=== PATIENT | female | born 1950 | race Caucasian/White ===

== ENCOUNTER 2017-02-11 02:28 | Emergency (ER) | payer BC ==
[2017-02-11] MEDS ORDERED: NS 0.9% 1000 ML* 1,000 ML IV ONE (02:49)
[2017-02-11 03:23] LABS: Hematocrit 43 % (35-47); Hemoglobin 14.5 g/dl (12.0-16.0); Mean Corpuscular HGB Conc 34 g/dl (31-36); Mean Corpuscular Hemoglobin 31 pg (27-31); Mean Corpuscular Volume 91 fL (80-97); Mean Platelet Volume 9 um3 (7.4-10.4); Red Blood Count 4.78 10^6/ul (4.0-5.4); Red Cell Distribution Width 13 % (10.5-15); White Blood Count 6.3 10^3/ul (3.5-10.8)
[2017-02-11 03:40] LABS: ALT 16 U/L (7-52); AST 21 U/L (13-39); Albumin 4.2 g/dL (3.2-5.2); Alkaline Phosphatase 72 U/L (34-104); Anion Gap 5 mmol/L (2-11); BUN/Creatinine Ratio 18.5 (8-20); Blood Urea Nitrogen 15 mg/dL (6-24); C Reactive Protein < 1.00 mg/L (< 5.00); CO2 Carbon Dioxide 27 mmol/L (22-32); Calcium 9.6 mg/dL (8.6-10.3); Chloride 106 mmol/L (101-111); Creatine Kinase 127 U/L (10-223); EGFR African American 91.6 (>60); EGFR Non-African American 71.2 (>60); Globulin 2.5 g/dL (2-4); Glucose 111 mg/dL (70-100); Lipase 33 U/L (11.0-82.0); Magnesium 2.2 mg/dL (1.9-2.7); Potassium 3.9 mmol/L (3.5-5.0); Sodium 138 mmol/L (133-145); Total Protein 6.7 g/dL (6.4-8.9)
[2017-02-11 03:43] LABS: Troponin I 0.01 ng/mL (<0.04)
[2017-02-11 04:13] VITALS: BP 96/63
--- NOTE | 2017-02-11 04:14 | ED ---
I, Maury,Stone, scribed for Paco Gipson MD on 02/11/17 at 0311 . Palpitations / Dysrhythmia - HPI Summary HPI Summary: This 66 y/o female presents to ED for intermittent irregular palpitation since 0130 AM tonight. She denies CP, and SOB. Positive mild dizziness. Pt reports that she has been having intermittent episodes since Fall 2016. Pt did have Holter monitor but indicated normal. She expresses concern that today's episode lasted longer than usual. PMHx includes thyroid disease, migraine, a-fib, and HLD. - History of Current Complaint Chief Complaint: EDDysrhythmPalp Time Seen by Provider: 02/11/17 02:45 Hx Obtained From: Patient, Family/Spikemaking Supervisor, Medical Records Onset/Duration: Resolved Timing: Intermittent Episodes Lasting: Severity Initially: Mild Severity Currently: None Character: Irregular Aggravating: Nothing Alleviating: Nothing - spontanously resolved Associated Signs & Symptoms: Dizzy - Allergy/Home Medications Allergies/Adverse Reactions: Allergies Allergy/AdvReac Type Severity Reaction Status Date / Time Propranolol Allergy Severe See Comment Verified 02/11/17 02:38 PMH/Surg Hx/FS Hx/Imm Hx Endocrine/Hematology History: Reports: Hx Thyroid Disease Cardiovascular History: Reports: Hx Hypercholesterolemia - Cancer History Hx Chemotherapy: No Hx Radiation Therapy: No Infectious Disease History: No Infectious Disease History: Denies: Traveled Outside the [place] in Last 30 Days - Family History Known Family History: Negative: Other - breast CA - Social History Hx Substance Use: No Substance Use Type: Reports: None Hx Tobacco Use: No Smoking Status (MU): Never Smoked Tobacco Review of Systems Negative: Fever Positive: Palpitations. Negative: Chest Pain Negative: Shortness Of Breath Neurological: Other - positive for mild dizziness Negative: Anxious, Depressed All Other Systems Reviewed And Are Negative: Yes Physical Exam Triage Information Reviewed: Yes Vital Signs On Initial Exam: Initial Vitals Temp Pulse Resp BP Pulse Ox 96.1 F 80 15 109/73 99 02/11/17 02:31 02/11/17 02:31 02/11/17 02:31 02/11/17 02:31 02/11/17 02:31 Vital Signs Reviewed: Yes Appearance: Positive: Well-Appearing, No Pain Distress Skin: Positive: Warm, Skin Color Reflects Adequate Perfusion, Dry Head/Face: Positive: Normal Head/Face Inspection Eyes: Positive: EOMI, JENARO Neck: Positive: Supple, Nontender Respiratory/Lung Sounds: Positive: Clear to Auscultation, Breath Sounds Present Cardiovascular: Positive: RRR, Pulses are Symmetrical in both Upper and Lower Extremities Musculoskeletal: Positive: Strength/ROM Intact Neurological: Positive: Sensory/Motor Intact, Alert, Oriented to Person Place, Time Psychiatric: Positive: Affect/Mood Appropriate AVPU Assessment: Alert Diagnostics - Vital Signs Vital Signs Temp Pulse Resp BP Pulse Ox 02/11/17 02:31 96.1 F 80 15 109/73 99 - Laboratory Lab Results: Lab Results 02/11/17 02/11/17 02/11/17 Range/Units 03:00 03:00 03:00 WBC 6.3 (3.5-10.8) 10^3/ul RBC 4.78 (4.0-5.4) 10^6/ul Hgb 14.5 (12.0-16.0) g/dl Hct 43 (35-47) % MCV 91 (80-97) fL MCH 31 (27-31) pg MCHC 34 (31-36) g/dl RDW 13 (10.5-15) % Plt Count 184 (150-450) 10^3/ul MPV 9 (7.4-10.4) um3 Neut % (Auto) 36.5 L (38-83) % Lymph % (Auto) 50.2 H (25-47) % [place] % (Auto) 6.4 (1-9) % Eos % (Auto) 5.6 (0-6) % Baso % (Auto) 1.3 (0-2) % Absolute Neuts (auto) 2.3 (1.5-7.7) 10^3/ul Absolute Lymphs (auto) 3.2 (1.0-4.8) 10^3/ul Absolute Monos (auto) 0.4 (0-0.8) 10^3/ul Absolute Eos (auto) 0.3 (0-0.6) 10^3/ul Absolute Basos (auto) 0.1 (0-0.2) 10^3/ul Absolute Nucleated RBC 0 10^3/ul Nucleated RBC % 0.1 INR (Anticoag Therapy) 0.87 L (0.89-1.11) APTT 30.6 (26.0-36.3) seconds Sodium 138 (133-145) mmol/L Potassium 3.9 (3.5-5.0) mmol/L Chloride 106 (101-111) mmol/L Carbon Dioxide 27 (22-32) mmol/L Anion Gap 5 (2-11) mmol/L BUN 15 (6-24) mg/dL Creatinine 0.81 (0.51-0.95) mg/dL Est GFR ( Amer) 91.6 (>60) Est GFR (Non-Af Amer) 71.2 (>60) BUN/Creatinine Ratio 18.5 (8-20) Glucose 111 H (70-100) mg/dL Calcium 9.6 (8.6-10.3) mg/dL Magnesium 2.2 (1.9-2.7) mg/dL Total Bilirubin 0.40 (0.2-1.0) mg/dL AST 21 (13-39) U/L ALT 16 (7-52) U/L Alkaline Phosphatase 72 (34-104) U/L Total Creatine Kinase 127 (10-223) U/L CK-MB (CK-2) 2.8 (0.6-6.3) ng/mL Troponin I 0.01 (<0.04) ng/mL C-Reactive Protein < 1.00 (< 5.00) mg/L Total Protein 6.7 (6.4-8.9) g/dL Albumin 4.2 (3.2-5.2) g/dL Globulin 2.5 (2-4) g/dL Albumin/Globulin Ratio 1.7 (1-3) Lipase 33 (11.0-82.0) U/L TSH 2.00 (0.34-5.60) mcIU/mL Result Diagrams: 02/11/17 03:00 02/11/17 03:00 Lab Statement: Any lab studies that have been ordered have been reviewed, and results considered in the medical decision making process. - Radiology CXR Xray Interpretation: No Acute Changes Radiology Interpretation Completed By: ED Physician - EKG 0251 Cardiac Rate: NL - 79 bpm EKG Rhythm: Sinus Rhythm Ectopy: None Course/Dx - Course Assessment/Plan: OCCATIONAL PVCS SEEN ON MONITOR. WELL IN ED. DISCUSSED RESULTS WITH PATIENT/. DISCHARGE HOME STABLE. - Diagnoses Provider Diagnoses: Palpitations, PVCs (premature ventricular contractions) Discharge - Discharge Plan Condition: Stable Disposition: HOME Patient Education Materials: Palpitations (ED) Referrals: Chris Westfall MD [Primary Care Provider] - Additional Instructions: FOLLOW UP WITH YOUR DOCTOR. RETURN TO THE EMERGENCY DEPARTMENT FOR ANY WORSENING OF YOUR CONDITION; chest pain, shortness of breath, you feel like passing out OR QUESTIONS OR CONCERNS. The documentation as recorded by the Maury walden Soohyun accurately reflects the service I personally performed and the decisions made by me, Paco Gipson MD.
--- NOTE | 2017-02-11 07:47 | RAD ---
INDICATION: Palpitations. COMPARISON: Comparison is made with a prior study from January 03, 2015. TECHNIQUE: A portable view of the chest was obtained. FINDINGS: Cardiac and mediastinal contours appear to be within normal limits. The lungs are clear. No pleural effusion is seen. IMPRESSION: NO EVIDENCE FOR ACUTE DISEASE.
== END 2017-02-11 04:12 | disposition home or self-care (01) ==
LOC: ED 02:28
DX: R00.2 Palpitations (principal); I49.3 Ventricular premature depolarization; I48.91 Unspecified atrial fibrillation; E78.5 Hyperlipidemia, unspecified; E78.00 Pure hypercholesterolemia, unspecified; E07.9 Disorder of thyroid, unspecified
CPT/HCPCS: 36415; 71010; 80053; 82550; 82553; 83690; 83735; 84443; 84484; 85025; 85610; 85730; 86140; 93005; 96360; 99283

== ENCOUNTER 2017-10-16 02:24 | Emergency (ER) | payer BC, MEDICARE ==
[2017-10-16] MEDS ORDERED: NS 0.9% 1000 ML* 1,000 ML IV ONE ×2 (02:36→02:48)
[2017-10-16] MEDS ORDERED: Digoxin IV* 0.5 MG/2 ML AMP (0.25 MG/ML) IV SLOW PU ONE (02:47)
[2017-10-16] MEDS ORDERED: Diltiazem IV* 5 MG/ML 5 ML VIAL (for loading dose/IV Push) (25 MG) IV SLOW PU ONE (02:49)
[2017-10-16 02:51] LABS: Hematocrit 42 % (35-47); Hemoglobin 14.2 g/dl (12.0-16.0); Mean Corpuscular HGB Conc 33 g/dl (31-36); Mean Corpuscular Hemoglobin 31 pg (27-31); Mean Corpuscular Volume 93 fL (80-97); Mean Platelet Volume 8 um3 (7.4-10.4); Red Blood Count 4.56 10^6/ul (4.0-5.4); Red Cell Distribution Width 13 % (10.5-15); White Blood Count 6.9 10^3/ul (3.5-10.8)
[2017-10-16 03:30] LABS: Albumin 4.3 g/dL (3.2-5.2); BUN/Creatinine Ratio 24.4 (8-20); Calcium 9.2 mg/dL (8.6-10.3); EGFR African American 85.2 (>60); EGFR Non-African American 66.2 (>60); Globulin 2.3 g/dL (2-4); Magnesium 2.3 mg/dL (1.9-2.7); Potassium 3.7 mmol/L (3.5-5.0); Total Bilirubin 0.5 mg/dL (0.2-1.0); Total Protein 6.6 g/dL (6.4-8.9)
[2017-10-16 03:32] LABS: Troponin I 0.01 ng/mL (<0.04)
[2017-10-16 03:45] LABS: TSH (Thyroid Stimulating Horm) 1.8 mcIU/mL (0.34-5.60)
[2017-10-16 05:20] VITALS: BP 100/60
--- NOTE | 2017-10-16 08:37 | RAD ---
Indication: Arrhythmia. Single frontal view of the chest performed at 0255 hours was reviewed. Comparison is made with previous exam dated February 11, 2017. No mediastinal shift is noted. Heart is of normal size and configuration. Lung warren appear clear. IMPRESSION: NO ACTIVE CARDIOPULMONARY DISEASE IS NOTED.
--- NOTE | 2017-11-03 03:45 | ED ---
Damion Gunetr Thomas, scribed for Emma Alvarado MD on 10/16/17 at 0238 . Palpitations / Dysrhythmia - HPI Summary HPI Summary: The pt is a 67 y/o F with a Hx of A-Fib presenting to the ED c/o palpitations characterized as irregular that began one hour ago. The palpitations woke her up. She also c/o mild SOB and dizziness. The palpitations came before the SOB and dizziness. Pt denies CP. She is on Lisinopril, ASA 81, and Crestor. Patient denies excessive alcohol or caffeine consumption. She had a stress test, Holter monitor, and echocardiogram about five months ago. - History of Current Complaint Chief Complaint: EDDysrhythmPalp Time Seen by Provider: 10/16/17 02:34 Hx Obtained From: Patient Onset/Duration: Lasting Hours - 1, Still Present Timing: Constant Severity Currently: Moderate Character: Irregular Aggravating: Nothing Alleviating: Nothing Associated Signs & Symptoms: Dizzy, Shortness of Breath - Allergy/Home Medications Allergies/Adverse Reactions: Allergies Allergy/AdvReac Type Severity Reaction Status Date / Time Propranolol Allergy Severe See Comment Verified 10/16/17 02:31 PMH/Surg Hx/FS Hx/Imm Hx Previously Healthy: No Endocrine/Hematology History: Reports: Hx Thyroid Disease Cardiovascular History: Reports: Hx Atrial Fibrillation, Hx Hypercholesterolemia - Cancer History Hx Chemotherapy: No Hx Radiation Therapy: No Infectious Disease History: No Infectious Disease History: Denies: Traveled Outside the [place] in Last 30 Days - Family History Known Family History: Negative: Other - breast CA - Social History Alcohol Use: Rare Hx Substance Use: No Substance Use Type: Reports: None Hx Tobacco Use: No Smoking Status (MU): Never Smoked Tobacco Review of Systems Positive: Palpitations. Negative: Chest Pain Positive: Shortness Of Breath Neurological: Other - Dizziness All Other Systems Reviewed And Are Negative: Yes Physical Exam - Summary Physical Exam Summary: VITAL SIGNS: Reviewed. GENERAL: Patient is a well-developed and nourished female who is lying comfortable in the stretcher. Patient is not in any acute respiratory distress. HEAD AND FACE: No signs of trauma. No ecchymosis, hematomas or skull depressions. No sinus tenderness. EYES: PERRLA, EOMI x 2, No injected conjunctiva, no nystagmus. EARS: Hearing grossly intact. Ear canals and tympanic membranes are within normal limits. MOUTH: Oropharynx within normal limits. NECK: Supple, trachea is midline, no adenopathy, no JVD, no carotid bruit, no c- spine tenderness, neck with full ROM. CHEST: Symmetric, no tenderness at palpation LUNGS: Clear to auscultation bilaterally. No wheezing or crackles. CVS: Irregularly irregular rhythm, tachycardia, S1 and S2 present, no murmurs or gallops appreciated. ABDOMEN: Soft, non-tender. No signs of distention. No rebound no guarding, and no masses palpated. Bowel sounds are normal. EXTREMITIES: FROM in all major joints, no edema, no cyanosis or clubbing. NEURO: Alert and oriented x 3. No acute neurological deficits. Speech is normal and follows commands. SKIN: Dry and warm Triage Information Reviewed: Yes Vital Signs On Initial Exam: Initial Vitals Temp Pulse Resp BP Pulse Ox 97.9 F 147 18 91/56 97 10/16/17 02:27 10/16/17 02:27 10/16/17 02:27 10/16/17 02:27 10/16/17 02:27 Vital Signs Reviewed: Yes Diagnostics - Vital Signs Vital Signs Temp Pulse Resp BP Pulse Ox 10/16/17 02:27 97.9 F 147 18 91/56 97 - Laboratory Result Diagrams: 10/16/17 02:41 10/16/17 02:41 Lab Statement: Any lab studies that have been ordered have been reviewed, and results considered in the medical decision making process. - Radiology CXR Xray Interpretation: No Acute Changes - Negative CXR Radiology Interpretation Completed By: ED Physician - EKG 02:37 Cardiac Rate: Tachycardia EKG Rhythm: Atrial Fibrillation EKG Interpretation: 137 BPM. Normal axis. No acute ischemic changes. 04:43 Cardiac Rate: NL EKG Interpretation: 63 BPM. Normal axis. Normal intervals. No ischemic changes. Re-Evaluation - Re-Evaluation First Eval Re-Evaluation Time: 04:59 Change: Improved Course/Dx - Course Assessment/Plan: The pt is a 67 y/o F with a Hx of A-Fib presenting to the ED c/ o palpitations characterized as irregular that began one hour ago. The palpitations woke her up. She also c/o mild SOB and dizziness. The palpitations came before the SOB and dizziness. Pt denies CP. She is on Lisinopril, ASA 81, and Crestor. Patient denies excessive alcohol or caffeine consumption. She had a stress test, Holter monitor, and echocardiogram about five months ago. Bloodwork and CXR were obtained. Initial EKG shows A-Fib at 137 BPM. The patient was given Digoxin, Diltiazem, and IV fluids. The patient converted back to sinus. Second EKG shows sinus rhythm. The patient is diagnosed with paroxysmal A-Fib. The patient is instructed to follow up with cardiology. Patient is agreeable with this plan. - Diagnoses Provider Diagnoses: Paroxysmal A-fib Discharge - Discharge Plan Condition: Stable Disposition: HOME Patient Education Materials: A-fib (Atrial Fibrillation) (ED) Referrals: Chris Westfall MD [Primary Care Provider] - If Needed Gunner Coyle MD [Medical Doctor] - 3 Days Additional Instructions: Follow up with cardiology in the next three days. Return to the emergency department for any new or worsening symptoms. The documentation as recorded by the Damion walden Thomas accurately reflects the service I personally performed and the decisions made by , Emma Alvarado MD.
== END 2017-10-16 05:19 | disposition home or self-care (01) ==
LOC: ED 02:24
DX: I48.0 Paroxysmal atrial fibrillation (principal); R42 Dizziness and giddiness; R06.02 Shortness of breath
CPT/HCPCS: 36415; 71010; 80053; 83605; 83735; 83880; 84443; 84484; 85025; 85610; 85730; 93005; 96374; 96375; 99283; J1160